=== PATIENT | male | born 1985 | race Caucasian/White ===

== ENCOUNTER 2019-06-28 08:15 | Inpatient (IN) | payer OTHER ==
[2019-06-28 08:49] VITALS: BMI 18.9
--- NOTE | 2019-06-28 10:57 | BHS.RME ---
Substance Use & Tx History - Substance Use History Alcohol Substance amount: vodka, beer Frequency of use: Daily Substance route: Oral - Last Treatment Date of last treatment: February 2019 Treatment type: Medical Where was last treatment: Detox Physical/Psych/Mental Status - Behavior General Behavior: Increased activity (restlessness, agitation) Eye Contact: Normal - Cooperativeness Cooperativeness: Cooperative - Thinking Thought Processes: Goal Directed Thought content: Future oriented - Physical Health Problems Is patient presently having any pain?: No Does patient presently have any injuries (include location): No Does patient currently have a fever: No Is patient : No CIWA Nausea/Vomitin Muscle Tremors: 2 Anxiety: 3 Agitation: 2 Paroxysmal Sweats: 2 Orientation: 0-Oriented Tacttile Disturbances: 1-Very Mild Itch/Numbness Auditory Disturbances: 0-None Visual Disturbances: 0-None Headache: 1-Very Mild CIWA-Ar Total Score: 13 Treatment Recommendation - Level of Care Level of Care: Acute Medical
[2019-06-28] MEDS ORDERED: IBUPROFEN 400 MG TABLET (FP) PO PRN (11:02)
[2019-06-28] MEDS ORDERED: MAG HYDROX/AL HYDROX/SIMETH 30 ML UNIT-DOSE CUP PO PRN (11:02)
[2019-06-28] MEDS ORDERED: MENTHOL/PHENOL 1 EACH UD MM PRN (11:02)
[2019-06-28] MEDS ORDERED: chlordiazePOXIDE HCL 10 MG CAPSULE PO PRN (11:02)
[2019-06-28] MEDS ORDERED: MAGNESIUM HYDROX 2400MG/30ML ORAL SUSPENSION 30 ML CUP PO PRN (11:02)
[2019-06-28] MEDS ORDERED: BISMUTH SUBSALICYLATE 524 MG/30 ML UD PO PRN (11:02)
[2019-06-28] MEDS ORDERED: ACETAMINOPHEN 325 MG TABLET (FP) PO PRN ×2 (11:02)
[2019-06-28] MEDS ORDERED: MAGNESIUM CITRATE 300 ML BOTTLE PO PRN (11:02)
[2019-06-28] MEDS ORDERED: METHOCARBAMOL 500 MG TABLET PO PRN (11:02)
[2019-06-28] MEDS ORDERED: ONDANSETRON *ODT* 4 MG TABLET SL ONE (11:02)
--- NOTE | 2019-06-28 11:04 | HP ---
CIWA Score Nausea/Vomitin Muscle Tremors: 3 Anxiety: 3 Agitation: 2 Paroxysmal Sweats: 2 Orientation: 0-Oriented Tacttile Disturbances: 1-Very Mild Itch/Numbness Auditory Disturbances: 0-None Visual Disturbances: 0-None Headache: 1-Very Mild CIWA-Ar Total Score: 14 - Admission Criteria OASAS Guidelines: Admission for Medically Managed Detox: Requires at least one of the followin. CIWA greater than 12 2. Seizures within the past 24 hours 3. Delirium tremens within the past 24 hours 4. Hallucinations within the past 24 hours 5. Acute intervention needed for co occurring medical disorder 6. Acute intervention needed for co occurring psychiatric disorder 7. Severe withdrawal that cannot be handled at a lower level of care (continued vomiting, continued diarrhea, abnormal vital signs) requiring intravenous medication and/or fluids 8. Patient presents the following: CIWA greater than 12 Admission Criteria Met: Admission criteria met Admitting History and Physical - Smoking History Smoking history: Never smoked Have you smoked in the past 12 months: No Admission ROS S - [facility] Chief Complaint: I need help Allergies/Adverse Reactions: Allergies Allergy/AdvReac Type Severity Reaction Status Date / Time shrimp Allergy Intermediate Hives Verified 06/28/19 08:42 History of Present Illness: This 34 year old man presents for detox from alcohol. He reports his last detox treatment was at [facility] in February of 2019. He also reports seizure and blackouts related to intoxication, last blackout was 4 months ago. Exam Limitations: No Limitations - Ebola screening Have you traveled outside of the country in the last 21 days: No Have you had contact with anyone from an Ebola affected area: No Have you been sick,other than usual withdrawal symptoms: No Do you have a fever: No - Review of Systems Constitutional: Loss of Appetite, Changes in sleep EENT: reports: No Symptoms Reported Respiratory: reports: No Symptoms reported Cardiac: reports: No Symptoms Reported GI: reports: Nausea, Poor Appetite, Poor Fluid Intake, Vomiting : reports: No Symptoms Reported Musculoskeletal: reports: Back Pain, Muscle Pain, Muscle Weakness Integumentary: reports: Flushing Neuro: reports: Headache, Seizure (r/t intoxication), Tremors Endocrine: reports: No Symptoms Reported Hematology: reports: No Symptoms Reported Psychiatric: reports: No Sypmtoms Reported Other Systems: Reviewed and Negative Patient History - Patient Medical History Hx Anemia: No Hx Asthma: No Hx Chronic Obstructive Pulmonary Disease (COPD): No Hx Cancer: No Hx Cardiac Disorders: No Hx Congestive Heart Failure: No Hx Hypertension: No Hx Hypercholesterolemia: No Hx Pacemaker: No HX Cerebrovascular Accident: No Hx Seizures: Yes (r/t alcohol w/drawal 02/2019) Hx Dementia: No Hx Diabetes: No Hx Gastrointestinal Disorders: No Hx Liver Disease: No Hx Genitourinary Disorders: No Hx Sexually Transmitted Disorders: No Hx Renal Disease (ESRD): No Hx Thyroid Disease: No Hx Human Immunodeficiency Virus (HIV): No Hx Hepatitis C: No Hx Depression: No Hx Suicide Attempt: No Hx Schizophrenia: No - Patient Surgical History Past Surgical History: No - PPD History Previous Implant?: No Implanted On Prior [facility] Admission?: No PPD to be Administered?: Yes - Smoking Cessation Smoking history: Never smoked Have you smoked in the past 12 months: No Hx Chewing Tobacco Use: No Initiated information on smoking cessation: No - Substances abused Alcohol Substance route: Oral Frequency: Daily Amount used: 1 liter of vodka/12 (12oz beers) Age of first use: 18 Date of last use: 06/28/19 Admission Physical Exam [facility] - Vital Signs Vital Signs: Vital Signs - 24 hr 06/28/19 08:41 Temperature 98.9 F Pulse Rate 85 Respiratory 18 Rate Blood Pressure 145/84 - Physical General Appearance: Yes: No Apparent Distress HEENTM: Yes: Hearing grossly Normal, Normocephalic, Normal Voice Respiratory: Yes: Chest Non-Tender, Lungs Clear, Normal Breath Sounds, No Respiratory Distress, No Accessory Muscle Use Neck: Yes: No masses,lesions,Nodules, Supple Breast: Yes: Breast Exam Deferred Cardiology: Yes: Regular Rhythm, Regular Rate, S1, S2 Abdominal: Yes: Normal Bowel Sounds, Non Tender, Soft Genitourinary: Yes: Within Normal Limits Back: Yes: Normal Inspection Musculoskeletal: Yes: full range of Motion, Gait Steady, Pelvis Stable Extremities: Yes: Tremors Neurological: Yes: 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, Fully Oriented, Alert, Motor Strength 5/5, Normal Mood/Affect, Normal Response Integumentary: Yes: Moist Lymphatic: Yes: Within Normal Limits - Diagnostic (1) Alcohol dependence, uncomplicated Current Visit: Yes Status: Acute Cleared for Admission [facility] - Detox or Rehab [facility] Level of Care: Medically Managed Detox Regimen/Protocol: Librium Claeared for Rehab Admission: No Breathalyzer - Breathalyzer Breathalyzer: 0.045 Urine Drug Screen - Test Device Lot number: [id number] Expiration date: 03/21/21 - Control Is test valid?: Yes - Results Drug screen NEGATIVE: Yes Inpatient Rehab Admission - Rehab Decision to Admit Inpatient rehab admission?: No
[2019-06-28] MEDS: chlordiazePOXIDE HCL 25 MG CAPSULE PO SCH ×3 (13:00→23:19)
[2019-06-28] MEDS: hydrOXYzine PAMOATE 25 MG CAPSULE (FP) PO SCH ×2 (14:40→18:53)
[2019-06-28] MEDS ORDERED: LORazepam 2 MG/ML SDV VIAL ONE (20:45)
[2019-06-28] MEDS ORDERED: LORazepam 2 MG/ML SDV VIAL IM ONE (20:50)
--- NOTE | 2019-06-28 21:21 | PN ---
S Progress Note Note: rapid response: UPON ARRIVAL CLIENT FOUND ON THE FLOOR CONFUSED AND AGITATED. PER STAFF CLIENT WAS SEEN LYING ON THE FLOOR WITH JERKING OF ALL EXTREMITIES AND FOAMING AT THE MOUTH. OTHER PATIENTS REPORTS CLIENT FELL FROM A SITTING POSITION. CLIENT IS AWAKE CONFUSED,POST ICTAL STATE, ANXIOUS, AGITATED HEAD- 5CM X 5 CM HEMATOMA NOTED TO CROWN/TOP OF HEAD VS 151/88 HR94 R 22, TEMP 99.5 O2 SAT 99%- 100%NRB MASK A- S/P ALCOHOL WITHDRAWAL SZ P- ATIVAN 2MG IM EMPRESS TRANSFER TO [facility] FOR EVAL HEAD CT FALL PROTOCOL [address] ANTONY PETERS LIBRIUM 25 MG TAPER START LIBRIUM 50 MG TAPER ICE PACK ORDERED UPON ARRIVAL OF EMS AND POST ATIVAN. CLIENT PRESENTS CALMER A/O X3, REPORTS HX/O WITHDRAWAL SZ X1 4 MONTHS AGO. DENIES ANY OTHER MEDICAL HX. ADMITTED TODAY TO [facility] FOR ALCOHOL DETOX. HE IS ON LIBRIUM TAPER. LDM 1PM W/ LIBRIUM 50 MG
[2019-06-28] MEDS ORDERED: chlordiazePOXIDE HCL 25 MG CAPSULE PO PRN (21:25)
[2019-06-28] MEDS: MELATONIN 5 MG TABLETS PO SCH (23:18)
[2019-06-28] MEDS: THIAMINE HCL 100 MG TABLET (FP) PO SCH (23:18)
[2019-06-29] MEDS: chlordiazePOXIDE HCL 25 MG CAPSULE PO SCH ×2 (05:55→10:59)
--- NOTE | 2019-06-29 06:43 | PN ---
[facility] Progress Note Note: Vital Signs 06/29/19 06/29/19 03:09 06:28 Temperature 98.3 F 98.4 F Pulse Rate 80 90 Respiratory 18 20 Rate Blood Pressure 115/68 114/70 CLIENT RETURNS FROM [facility] AT 230 AM . HE IS A/O X3. DENIES COMPLAINTS. HEMATOMA TO HEAD HAS SUBSIDED SIGNIFICANTLY BUT STILL THERE. SKIN INTACT. RADIOLOGY Radiology Studies Ordered: Category Date Time Status CERVICAL SPINE CT W/O CONTR [CT] Stat CT Scan 06/28/19 22:[address] WITHOUT CONTRAST [CT] Stat CT Scan 06/28/19 22:01 Ordered Medical Decision Making - Medical Decision Making 06/28/19 22:23 34M with a PMH of EtOH abuse who presents to the ER after having a seizure at our detox facility. CIWA at detox was 12. Pt is tremulous on exam. Will give valium and order imaging. Pending labs and imaging. On monitoring analyst. 06/29/19 01:07 CT negative. Will d/c back to [facility] for detox. Discharge - Discharge Information Problems reviewed: Yes Clinical Impression/Diagnosis: Fall due to seizure Condition: Fair Disposition: HOME
[2019-06-29 10:23] LABS: HEMATOCRIT 37.1 % (35.4-49); HEMOGLOBIN 12.4 GM/dL (11.7-16.9); MCH 29.5 pg (25.7-33.7); MCHC 33.5 g/dl (32.0-35.9); MEAN PLT VOLUME 9.1 fl (7.5-11.1); PLATELET COUNT 102 K/MM3 (134-434); RBC 4.21 M/mm3 (4.00-5.60); RDW 16.3 % (11.9-15.9); WHITE BLOOD COUNT 4.2 K/mm3 (4.0-10.0)
[2019-06-29 10:31] LABS: ALBUMIN 3.6 g/dl (3.4-5.0); BILIRUBIN,TOTAL 2.2 mg/dL (0.2-1); BLOOD UREA NITROGEN 6.8 mg/dL (7-18); CALCIUM 8.7 mg/dL (8.5-10.1); CREATININE 0.6 mg/dL (0.55-1.3); POTASSIUM 3.7 mmol/L (3.5-5.1); TOT PROT 6.4 g/dl (6.4-8.2)
[2019-06-29] MEDS: PRENATAL VITAMINS W/ FOLIC ACID TABLET (FP) PO SCH (10:59)
--- NOTE | 2019-06-29 12:36 | PN ---
[facility] CIWA - CIWA Score Nausea/Vomitin-No Nausea/No Vomiting Muscle Tremors: 1-None Visible, but Fluker Anxiety: 4-Mod. Anxious/Guarded Agitation: 3 Paroxysmal Sweats: 2 Orientation: 0-Oriented Tacttile Disturbances: 0-None Auditory Disturbances: 0-None Visual Disturbances: 2-Mild Sensitivity Headache: 0-None Present CIWA-Ar Total Score: 12 S Progress Note (SOAP) Subjective: 34 years old male admitted on 06/28/19 for alcohol withdrawal sx management treating with librium detox regiment seizure episode 05/30/19 x 1 sent to ER negative ct return and continue alcohol withdrawal symptoms management left superior temporal hematoma no visible no palpable denies pain denies headache denies dizziness ate breakfast and lunch tolerate food and fluid well Objective: 06/29/19 12:36 Vital Signs Temperature 98.2 F 06/29/19 09:08 Pulse Rate 93 H 06/29/19 09:08 Respiratory Rate 20 06/29/19 09:08 Blood Pressure 107/61 06/29/19 09:08 O2 Sat by Pulse Oximetry (%) Laboratory Last Values WBC 4.2 K/mm3 (4.0-10.0) 06/29/19 07:50 RBC 4.21 M/mm3 (4.00-5.60) 06/29/19 07:50 Hgb 12.4 GM/dL (11.7-16.9) 06/29/19 07:50 Hct 37.1 % (35.4-49) 06/29/19 07:50 MCV 88.0 fl (80-96) 06/29/19 07:50 MCH 29.5 pg (25.7-33.7) 06/29/19 07:50 MCHC 33.5 g/dl (32.0-35.9) 06/29/19 07:50 RDW 16.3 % (11.9-15.9) H 06/29/19 07:50 Plt Count 102 K/MM3 (134-434) L 06/29/19 07:50 MPV 9.1 fl (7.5-11.1) 06/29/19 07:50 Sodium 138 mmol/L (136-145) 06/29/19 07:50 Potassium 3.7 mmol/L (3.5-5.1) 06/29/19 07:50 Chloride 101 mmol/L (98-107) 06/29/19 07:50 Carbon Dioxide 30 mmol/L (21-32) 06/29/19 07:50 Anion Gap 7 MMOL/L (8-16) L 06/29/19 07:50 BUN 6.8 mg/dL (7-18) L 06/29/19 07:50 Creatinine 0.6 mg/dL (0.55-1.3) 06/29/19 07:50 Est GFR (CKD-EPI)AfAm 152.04 06/29/19 07:50 Est GFR (CKD-EPI)NonAf 131.18 06/29/19 07:50 Random Glucose 111 mg/dL (74-106) H 06/29/19 07:50 Calcium 8.7 mg/dL (8.5-10.1) 06/29/19 07:50 Total Bilirubin 2.2 mg/dL (0.2-1) H 06/29/19 07:50 AST 204 U/L (15-37) H 06/29/19 07:50 ALT 123 U/L (13-61) H 06/29/19 07:50 Alkaline Phosphatase 87 U/L (45-117) 06/29/19 07:50 Total Protein 6.4 g/dl (6.4-8.2) 06/29/19 07:50 Albumin 3.6 g/dl (3.4-5.0) 06/29/19 07:50 RPR Titer Nonreactive (NONREACTIVE) 06/29/19 07:50 lab noted ast elevation discontinue librium begin ativan detox regiment Assessment: 06/29/19 12:39 alcohol withdrawal Plan: ativan regiment
[2019-06-29] MEDS ORDERED: LORazepam 1 MG TABLET PO PRN (12:41)
[2019-06-29] MEDS: LORazepam 2 MG TABLET PO SCH ×2 (18:13→22:12)
[2019-06-29] MEDS: THIAMINE HCL 100 MG TABLET (FP) PO SCH (22:12)
[2019-06-29] MEDS: MELATONIN 5 MG TABLETS PO SCH (22:12)
[2019-06-30] MEDS ORDERED: chlordiazePOXIDE HCL 25 MG CAPSULE PO SCH (05:00)
[2019-06-30] MEDS ORDERED: chlordiazePOXIDE 5 MG CAPSULE PO SCH (05:00)
[2019-06-30] MEDS: LORazepam 2 MG TABLET PO SCH ×4 (06:40→22:08)
[2019-06-30] MEDS: PRENATAL VITAMINS W/ FOLIC ACID TABLET (FP) PO SCH (10:36)
--- NOTE | 2019-06-30 14:54 | PN ---
[facility] CIWA - CIWA Score Nausea/Vomitin-No Nausea/No Vomiting Muscle Tremors: 4-Moderate,w/Arms Extend Anxiety: 3 Agitation: 2 Paroxysmal Sweats: 1-Minimal Palms Moist Orientation: 0-Oriented Tacttile Disturbances: 0-None Auditory Disturbances: 0-None Visual Disturbances: 0-None Headache: 0-None Present CIWA-Ar Total Score: 10 S Progress Note (SOAP) Subjective: 34 years old male admitted on 06/28/19 for alcohol withdrawal sx management treating with ativan detox regiment feeling ok today encourage the patient to attend groups and meetings that speaking staff is hosting the meetings Objective: 06/30/19 14:55 Vital Signs Temperature 98.7 F 06/30/19 12:44 Pulse Rate 100 H 06/30/19 12:44 Respiratory Rate 16 06/30/19 12:44 Blood Pressure 110/66 06/30/19 12:44 O2 Sat by Pulse Oximetry (%) Laboratory Last Values WBC 4.2 K/mm3 (4.0-10.0) 06/29/19 07:50 RBC 4.21 M/mm3 (4.00-5.60) 06/29/19 07:50 Hgb 12.4 GM/dL (11.7-16.9) 06/29/19 07:50 Hct 37.1 % (35.4-49) 06/29/19 07:50 MCV 88.0 fl (80-96) 06/29/19 07:50 MCH 29.5 pg (25.7-33.7) 06/29/19 07:50 MCHC 33.5 g/dl (32.0-35.9) 06/29/19 07:50 RDW 16.3 % (11.9-15.9) H 06/29/19 07:50 Plt Count 102 K/MM3 (134-434) L 06/29/19 07:50 MPV 9.1 fl (7.5-11.1) 06/29/19 07:50 Sodium 138 mmol/L (136-145) 06/29/19 07:50 Potassium 3.7 mmol/L (3.5-5.1) 06/29/19 07:50 Chloride 101 mmol/L (98-107) 06/29/19 07:50 Carbon Dioxide 30 mmol/L (21-32) 06/29/19 07:50 Anion Gap 7 MMOL/L (8-16) L 06/29/19 07:50 BUN 6.8 mg/dL (7-18) L 06/29/19 07:50 Creatinine 0.6 mg/dL (0.55-1.3) 06/29/19 07:50 Est GFR (CKD-EPI)AfAm 152.04 06/29/19 07:50 Est GFR (CKD-EPI)NonAf 131.18 06/29/19 07:50 Random Glucose 111 mg/dL (74-106) H 06/29/19 07:50 Calcium 8.7 mg/dL (8.5-10.1) 06/29/19 07:50 Total Bilirubin 2.2 mg/dL (0.2-1) H 06/29/19 07:50 AST 204 U/L (15-37) H 06/29/19 07:50 ALT 123 U/L (13-61) H 06/29/19 07:50 Alkaline Phosphatase 87 U/L (45-117) 06/29/19 07:50 Total Protein 6.4 g/dl (6.4-8.2) 06/29/19 07:50 Albumin 3.6 g/dl (3.4-5.0) 06/29/19 07:50 RPR Titer Nonreactive (NONREACTIVE) 06/29/19 07:50 T.pallidum Ab Interpret Cancelled 06/29/19 07:50 lab noted repeat ast 07/02/19 06/30/19 14:56 Assessment: 06/30/19 14:57 alcohol withdrawal Plan: ativan regiment
[2019-06-30] MEDS: THIAMINE HCL 100 MG TABLET (FP) PO SCH (22:08)
[2019-06-30] MEDS: MELATONIN 5 MG TABLETS PO SCH (22:09)
[2019-07-01] MEDS ORDERED: chlordiazePOXIDE HCL 10 MG CAPSULE PO PRN ×2
[2019-07-01] MEDS ORDERED: chlordiazePOXIDE HCL 10 MG CAPSULE PO SCH ×2 (05:00)
[2019-07-01] MEDS: LORazepam 1 MG TABLET PO SCH ×4 (06:05→22:12)
--- NOTE | 2019-07-01 09:55 | PN ---
[facility] CIWA - CIWA Score Nausea/Vomitin-No Nausea/No Vomiting Muscle Tremors: 2 Anxiety: 3 Agitation: 1-Slight > Activity Paroxysmal Sweats: 2 Orientation: 0-Oriented Tacttile Disturbances: 0-None Auditory Disturbances: 0-None Visual Disturbances: 1-Very Mild Sensitivity Headache: 0-None Present CIWA-Ar Total Score: 9 S Progress Note (SOAP) Subjective: 34 years old male admitted on 06/28/19 for alcohol withdrawal sx management treating with ativan detox regiment feeling ok today sitting on the edge of the bed eating breakfast denies nausea vomiting denies abdominal cramping no diarrhea nor constipation Objective: 07/01/19 09:55 Vital Signs Temperature 97.9 F 07/01/19 08:34 Pulse Rate 85 07/01/19 08:34 Respiratory Rate 18 07/01/19 08:34 Blood Pressure 107/72 07/01/19 08:34 O2 Sat by Pulse Oximetry (%) Laboratory Last Values WBC 4.2 K/mm3 (4.0-10.0) 06/29/19 07:50 RBC 4.21 M/mm3 (4.00-5.60) 06/29/19 07:50 Hgb 12.4 GM/dL (11.7-16.9) 06/29/19 07:50 Hct 37.1 % (35.4-49) 06/29/19 07:50 MCV 88.0 fl (80-96) 06/29/19 07:50 MCH 29.5 pg (25.7-33.7) 06/29/19 07:50 MCHC 33.5 g/dl (32.0-35.9) 06/29/19 07:50 RDW 16.3 % (11.9-15.9) H 06/29/19 07:50 Plt Count 102 K/MM3 (134-434) L 06/29/19 07:50 MPV 9.1 fl (7.5-11.1) 06/29/19 07:50 Sodium 138 mmol/L (136-145) 06/29/19 07:50 Potassium 3.7 mmol/L (3.5-5.1) 06/29/19 07:50 Chloride 101 mmol/L (98-107) 06/29/19 07:50 Carbon Dioxide 30 mmol/L (21-32) 06/29/19 07:50 Anion Gap 7 MMOL/L (8-16) L 06/29/19 07:50 BUN 6.8 mg/dL (7-18) L 06/29/19 07:50 Creatinine 0.6 mg/dL (0.55-1.3) 06/29/19 07:50 Est GFR (CKD-EPI)AfAm 152.04 06/29/19 07:50 Est GFR (CKD-EPI)NonAf 131.18 06/29/19 07:50 Random Glucose 111 mg/dL (74-106) H 06/29/19 07:50 Calcium 8.7 mg/dL (8.5-10.1) 06/29/19 07:50 Total Bilirubin 2.2 mg/dL (0.2-1) H 06/29/19 07:50 AST 204 U/L (15-37) H 06/29/19 07:50 ALT 123 U/L (13-61) H 06/29/19 07:50 Alkaline Phosphatase 87 U/L (45-117) 06/29/19 07:50 Total Protein 6.4 g/dl (6.4-8.2) 06/29/19 07:50 Albumin 3.6 g/dl (3.4-5.0) 06/29/19 07:50 RPR Titer Nonreactive (NONREACTIVE) 06/29/19 07:50 T.pallidum Ab Interpret Cancelled 06/29/19 07:50 lab noted Assessment: 07/01/19 09:56 alcohol withdrawal Plan: ativan regiment
[2019-07-01] MEDS: PRENATAL VITAMINS W/ FOLIC ACID TABLET (FP) PO SCH (10:25)
[2019-07-01] MEDS: THIAMINE HCL 100 MG TABLET (FP) PO SCH (22:12)
[2019-07-01] MEDS: MELATONIN 5 MG TABLETS PO SCH (22:12)
[2019-07-02] MEDS ORDERED: LORazepam 0.5 MG TABLET PO PRN
[2019-07-02] MEDS ORDERED: LORazepam 0.5 MG TABLET PO SCH (05:00)
[2019-07-02] MEDS ORDERED: chlordiazePOXIDE HCL 10 MG CAPSULE PO SCH (05:00)
[2019-07-02] MEDS ORDERED: chlordiazePOXIDE HCL 10 MG CAPSULE PO ONE (05:00)
[2019-07-02 09:25] VITALS: BP 125/72; PULSE 20; TEMP 97
--- NOTE | 2019-07-02 12:30 | DS ---
[facility] Detox Discharge Summary Admission Date: 06/28/19 Discharge Date: 07/02/19 - History Present History: Alcohol Dependence Additional Comments: 34 years old male admitted on 06/28/19 for alcohol withdrawal sx management treating with ativan detox regiment feeling better today prefers to leave the detox unit today Mr Turk is alert oriented x 3 speech clearly coherently ambulating steady gait respiratory clear lung bilaterally on auscultation abdomen soft no rebound tenderness extremities full rang of motion Pertinent Past History: time for discharge 46 minutes discussed the benefits of ativan regiment completion - Physical Exam Results Vital Signs: Vital Signs Temperature 97 F L 07/02/19 08:30 Pulse Rate 20 L 07/02/19 08:30 Respiratory Rate 100 H 07/02/19 08:30 Blood Pressure 125/72 07/02/19 08:30 O2 Sat by Pulse Oximetry (%) Pertinent Admission Physical Exam Findings: alcohol withdrawal Vital Signs Temperature 97 F L 07/02/19 08:30 Pulse Rate 20 L 07/02/19 08:30 Respiratory Rate 100 H 07/02/19 08:30 Blood Pressure 125/72 07/02/19 08:30 O2 Sat by Pulse Oximetry (%) Laboratory Last Values WBC 4.2 K/mm3 (4.0-10.0) 06/29/19 07:50 RBC 4.21 M/mm3 (4.00-5.60) 06/29/19 07:50 Hgb 12.4 GM/dL (11.7-16.9) 06/29/19 07:50 Hct 37.1 % (35.4-49) 06/29/19 07:50 MCV 88.0 fl (80-96) 06/29/19 07:50 MCH 29.5 pg (25.7-33.7) 06/29/19 07:50 MCHC 33.5 g/dl (32.0-35.9) 06/29/19 07:50 RDW 16.3 % (11.9-15.9) H 06/29/19 07:50 Plt Count 102 K/MM3 (134-434) L 06/29/19 07:50 MPV 9.1 fl (7.5-11.1) 06/29/19 07:50 Sodium 138 mmol/L (136-145) 06/29/19 07:50 Potassium 3.7 mmol/L (3.5-5.1) 06/29/19 07:50 Chloride 101 mmol/L (98-107) 06/29/19 07:50 Carbon Dioxide 30 mmol/L (21-32) 06/29/19 07:50 Anion Gap 7 MMOL/L (8-16) L 06/29/19 07:50 BUN 6.8 mg/dL (7-18) L 06/29/19 07:50 Creatinine 0.6 mg/dL (0.55-1.3) 06/29/19 07:50 Est GFR (CKD-EPI)AfAm 152.04 06/29/19 07:50 Est GFR (CKD-EPI)NonAf 131.18 06/29/19 07:50 Random Glucose 111 mg/dL (74-106) H 06/29/19 07:50 Calcium 8.7 mg/dL (8.5-10.1) 06/29/19 07:50 Total Bilirubin 2.2 mg/dL (0.2-1) H 06/29/19 07:50 AST 204 U/L (15-37) H 06/29/19 07:50 ALT 123 U/L (13-61) H 06/29/19 07:50 Alkaline Phosphatase 87 U/L (45-117) 06/29/19 07:50 Total Protein 6.4 g/dl (6.4-8.2) 06/29/19 07:50 Albumin 3.6 g/dl (3.4-5.0) 06/29/19 07:50 RPR Titer Nonreactive (NONREACTIVE) 06/29/19 07:50 T.pallidum Ab Interpret Cancelled 06/29/19 07:50 lab noted - Treatment Hospital Course: Detox Protocol Followed, Detoxed Safely, Responded well, Discharged Condition Good, Rehab Referral Accepted Patient has Accepted a Rehab Referral to: [facility] - Medication Discharge Medications: Ambulatory Orders NK [No Known Home Medication] 06/28/19 - Diagnosis (1) Alcohol dependence, uncomplicated Status: Acute - AMA Did Patient Leave Against Medical Advice: No CIWA Score - CIWA Score Nausea/Vomitin-No Nausea/No Vomiting Muscle Tremors: 2 Anxiety: 2 Agitation: 0-Normal Activity Paroxysmal Sweats: 1-Minimal Palms Moist Orientation: 0-Oriented Tacttile Disturbances: 0-None Auditory Disturbances: 0-None Visual Disturbances: 1-Very Mild Sensitivity Headache: 0-None Present CIWA-Ar Total Score: 6
[2019-07-03] MEDS ORDERED: chlordiazePOXIDE HCL 10 MG CAPSULE PO ONE (05:00)
[2019-07-03] MEDS ORDERED: LORazepam 0.5 MG TABLET PO ONE (05:00)
== END 2019-07-02 09:00 | disposition home or self-care (01) | DRG 775 ==
LOC: YASAS 08:15 → Y3N 11:07
PROVIDERS: ADMIT Allergy & Immunology; ATTEND Allergy & Immunology
PROC: HZ2ZZZZ Detoxification Services for Substance Abuse Treatment (ICD-10-PCS; principal; 2019-06-28)
DX: F10.230 Alcohol dependence with withdrawal, uncomplicated (principal); G40.509 Epileptic seizures related to external causes, not intractable, without status epilepticus; S00.03XA Contusion of scalp, initial encounter; W18.39XA Other fall on same level, initial encounter; Y93.89 Activity, other specified; Y92.230 Patient room in hospital as the place of occurrence of the external cause; Y99.8 Other external cause status
CPT/HCPCS: 36415; 80053; 85027; 86593; Q0162

== ENCOUNTER 2019-06-28 21:26 | Emergency (ER) | payer OTHER ==
[2019-06-28] MEDS ORDERED: FOLIC ACID INJECTION - 1 MG, THIAMINE HCL 100 MG, MULTIVIT INJECTION ADULT 10 ML in SOD... IVPB ONE (22:00)
[2019-06-28] MEDS ORDERED: diazePAM CARPU-JECT 10 MG/2 ML DISP.SYRIN IVPUSH ONE (22:08)
--- NOTE | 2019-06-28 22:12 | PDOC ---
Attending Attestation - Resident Resident Name: Macario Velasco - ED Attending Attestation I have performed the following: I have examined & evaluated the patient, The case was reviewed & discussed with the resident, I agree w/resident's findings & plan - HPI HPI: 06/28/19 23:32 34-year-old male with past medical history of alcohol abuse, currently drinks 3 to 4 beers a day and a bout a half pint of vodka per day. Patients this last drink was yesterday and he presented to [place] here for detox. In [facility], a rapid response was called and the patient was noted to have a seizure, was given 2 mg of Ativan and 50 mg of Librium. The patient has no acute complaints currently. His last alcohol withdrawal seizures in February 2019. The patient states that he was never in withdrawal in the past but medical records indicate otherwise. The patient is currently on a Librium taper. - Physicial Exam PE: 06/29/19 02:31 Agree with resident exam. Pt is a little shaky; etoh level is zero Pt is afebrile exam is normal abd minimally tender. - Medical Decision Making 06/28/19 23:31 CBC normal rest of labs pending 06/29/19 00:12 Patient Name: SWAPNIL SALINAS THIS IS A PRELIMINARY REPORT FROM [facility] DATE OF SERVICE: 2019-06-28 23:21:01 IMAGES: [id number] EXAM: HEAD CT WITHOUT CONTRAST HISTORY: Patient fell COMPARISON: None. FINDINGS: No acute intracranial abnormality. No hemorrhage. Osseous structures are intact. Note made of an elongated left globe. High myopia versus staphyloma. 06/29/19 00:37 Patient Name: SWAPNIL SALINAS THIS IS A PRELIMINARY REPORT FROM [facility] DATE OF SERVICE: 2019-06-28 23:18:25 IMAGES: [id number] EXAM: CERVICAL SPINE CT W/O CONTR HISTORY: Patient fell COMPARISON: None. FINDINGS Negative for cervical spine fracture or malalignment. Small disc protrusions or bulges C3-4, C4-5, C5-6. 06/29/19 02:33 Pt is stable to return to [facility].
[2019-06-28] MEDS ORDERED: diazePAM CARPU-JECT 10 MG/2 ML DISP.SYRIN ONE (22:32)
[2019-06-28 22:51] VITALS: TEMP 98.5; BMI 18.9
--- NOTE | 2019-06-28 23:07 | PDOC ---
History of Present Illness - General Stated Complaint: SEIZURE Time Seen by Provider: 06/28/19 21:59 History Source: Patient, Other ([facility] notes) Exam Limitations: No Limitations - History of Present Illness Initial Comments: 06/28/19 22:21 34-year-old male with past medical history of alcohol abuse, currently drinks 3 to 4 beers a day and a bout a half pint of vodka per day. Patients this last dr willy was yesterday and he presented to [place] here for detox. In [facility], a rapid response was called and the patient was noted to have a seizure, was given 2 mg of Ativan and 50 mg of Librium. The patient has no acute complaints currently. His last alcohol withdrawal seizures in February 2019. The patient states that he was never in withdrawal in the past but medical records indicate otherwise. The patient is currently on a Librium taper. Past History - Past Medical History Allergies/Adverse Reactions: Allergies Allergy/AdvReac Type Severity Reaction Status Date / Time shrimp Allergy Intermediate Hives Verified 06/28/19 22:29 Home Medications: Ambulatory Orders NK [No Known Home Medication] 06/28/19 Anemia: No Asthma: No Cancer: No Cardiac Disorders: No CVA: No COPD: No CHF: No Dementia: No Diabetes: No GI Disorders: No Disorders: No HTN: No Hypercholesterolemia: No Kidney Stones: No Liver Disease: No Seizures: Yes (r/t alcohol w/drawal 02/2019) Thyroid Disease: No - Surgical History Abdominal Surgery: No Appendectomy: No Cardiac Surgery: No Cholecystectomy: No Lung Surgery: No Neurologic Surgery: No - Reproductive History Testicular Surgery: No - Psycho Social/Smoking Cessation Hx Smoking History: Never smoked Have you smoked in the past 12 months: No Hx Substance Use Treatment: No Review of Systems - Review of Systems Able to Perform ROS?: Yes Comments:: 06/28/19 22:22 GENERAL/CONSTITUTIONAL: No fever or chills. No weakness. HEAD, EYES, EARS, NOSE AND THROAT: No change in vision. No ear pain or discharge. No sore throat. CARDIOVASCULAR: No chest pain, palpitations, or lightheadedness. RESPIRATORY: No cough, wheezing, shortness of breath, or hemoptysis. GASTROINTESTINAL: No abdominal pain, nausea, vomiting, diarrhea, or constipation. GENITOURINARY: No dysuria, frequency, hematuria, or change in urination. MUSCULOSKELETAL: No joint or muscle swelling or pain. No neck or back pain. SKIN: No rash or lesions. NEUROLOGIC: + for possible seizure and EtOH withdrawals. No headache, numbness, tingling, focal weakness, loss of consciousness, or change in strength/sensation. Is the patient limited Belarusian proficient: No *Physical Exam - Physical Exam 06/28/19 22:23 GENERAL: Well developed, well nourished. Awake and alert. No acute distress. HEENT: Normocephalic, atraumatic. Hearing grossly normal. Moist mucous membranes. PERRLA, EOMI. No conjunctival pallor. Sclera are non-icteric. NECK: Supple. Full ROM. No JVD. CARDIOVASCULAR: Regular rate and rhythm. No murmurs, rubs, or gallops. PULMONARY: No evidence of respiratory distress. Lungs clear to auscultation bilaterally. No wheezing, rales, or rhonchi. ABDOMINAL: Soft. Non-tender. Non-distended. No rebound or guarding. GENITOURINARY: No CVA tenderness bilaterally. MUSCULOSKELETAL: Normal range of motion at all joints. No bony deformities or tenderness. EXTREMITIES: No cyanosis. No clubbing. No edema. No calf tenderness or swelling. SKIN: Warm and dry. Normal capillary refill. No rashes. No jaundice. NEUROLOGICAL: Alert, awake, appropriate. Cranial nerves 2-12 intact. No deficits to light touch and temperature in face, upper extremities and lower extremities. 5/5 strength in deltoids, biceps, triceps, quadriceps, hamstrings, and gastrocnemius. Normal speech. Gait is normal without ataxia. Tremulous. PSYCHIATRIC: Cooperative. Good eye contact. Appropriate mood and affect. ED Treatment Course - LABORATORY CBC & Chemistry Diagram: 06/28/19 22:45 06/28/19 22:45 - RADIOLOGY Radiology Studies Ordered: Category Date Time Status CERVICAL SPINE CT W/O CONTR [CT] Stat CT Scan 06/28/19 22:[address] WITHOUT CONTRAST [CT] Stat CT Scan 06/28/19 22:01 Ordered Medical Decision Making - Medical Decision Making 06/28/19 22:23 34M with a PMH of EtOH abuse who presents to the ER after having a seizure at our detox facility. CIWA at detox was 12. Pt is tremulous on exam. Will give valium and order imaging. Pending labs and imaging. On monitoring analyst. 06/29/19 01:07 CT negative. Will d/c back to [facility] for detox. Discharge - Discharge Information Problems reviewed: Yes Clinical Impression/Diagnosis: Fall due to seizure Condition: Fair Disposition: HOME - Admission No - Follow up/Referral - Patient Discharge Instructions - Post Discharge Activity
[2019-06-28 23:08] LABS: BASO % 0.5 % (0-2.0); EOS % 0.7 % (0-4.5); HEMATOCRIT 40.6 % (35.4-49); HEMOGLOBIN 13.7 GM/dL (11.7-16.9); LYMPH % 11.2 % (8-40); MCH 29.2 pg (25.7-33.7); MCHC 33.6 g/dl (32.0-35.9); MEAN CELL VOLUME 87.1 fl (80-96); MEAN PLT VOLUME 8.5 fl (7.5-11.1); MONO % 10.3 % (3.8-10.2); NEUT % 77.3 % (42.8-82.8); PLATELET COUNT 114 K/MM3 (134-434); RBC 4.67 M/mm3 (4.00-5.60); WHITE BLOOD COUNT 4.9 K/mm3 (4.0-10.0)
[2019-06-28 23:32] LABS: ALBUMIN 4.1 g/dl (3.4-5.0); ALK PHOS 95 U/L (45-117); ANION GAP 11 MMOL/L (8-16); BILIRUBIN,TOTAL 1.6 mg/dL (0.2-1); BLOOD UREA NITROGEN 9.4 mg/dL (7-18); CALCIUM 8.9 mg/dL (8.5-10.1); CHLORIDE 95 mmol/L (98-107); CO2 29 mmol/L (21-32); CREATININE 0.5 mg/dL (0.55-1.3); GLUCOSE,RANDOM 115 mg/dL (74-106); MAGNESIUM 1.5 mg/dL (1.8-2.4); POTASSIUM 3.3 mmol/L (3.5-5.1); SGOT/AST 120 U/L (15-37); SGPT/ALT 105 U/L (13-61); SODIUM 135 mmol/L (136-145); TOT PROT 7.2 g/dl (6.4-8.2)
[2019-06-29] MEDS ORDERED: POTASSIUM CHLORIDE TABS 20 MEQ TABLET.ER (FP) PO ONE ×2 (00:09→01:25)
[2019-06-29 04:24] VITALS: BP 123/75; PULSE 87
== END 2019-06-29 02:24 | disposition short-term general hospital (02) ==
LOC: JER 21:26
PROC: 3E033NZ Introduction of Analgesics, Hypnotics, Sedatives into Peripheral Vein, Percutaneous Approach (ICD-10-PCS; principal; 2019-06-28)
PROC: 3E033GC Introduction of Other Therapeutic Substance into Peripheral Vein, Percutaneous Approach (ICD-10-PCS; 2019-06-28)
DX: F10.10 Alcohol abuse, uncomplicated (principal); W18.39XA Other fall on same level, initial encounter; Y93.89 Activity, other specified; Y92.239 Unspecified place in hospital as the place of occurrence of the external cause; Z91.013 Allergy to seafood
CPT/HCPCS: 36415; 70450-TC; 72125-TC; 80053; 80307; 82550; 82553; 83735; 85025; 96365; 96375; 99284-25; J7030